=== PATIENT | female | born 1930 | race Caucasian/White ===

== ENCOUNTER 2019-09-08 13:12 | Inpatient (IN) ==
--- NOTE | 2019-09-08 13:26 | PROVIDER DOCUMENTATION ---
HPI-Respiratory General - General Stated Complaint: respitory distress Time Seen by Provider: 09/08/19 13:17 Source: patient Allergies/Adverse Reactions: Patient Allergies Allergy/AdvReac Type Severity Reaction Status Date / Time No Known Allergies Allergy Verified 09/08/19 13:46 Home Medications: Home Medication List Medication Instructions Recorded Confirmed Last Taken Type NK [No Home Medications] 09/08/19 09/08/19 Unknown History - History of Present Illness-Resp Nature of Presenting Problem: 88 YOF WITH PMH OF HTN, AFIB PRESENTS WITH C/O WHEEZING, SOB, COUGH THIS AM. SHE REPORTS SHE FELT LIKE SHE WAS CHOKING "DEEP DOWN" SHE WAS NOT EATING AT THE TIME. HE DAUGHTER CALLED EMS WHO REPORTS INSP/EXT WHEEZING ON THEIR ARRIVAL AND WAS GIVEN A NIRANJAN-NEB WITH GOOD RESPONSE. PT REPORTS SHE IS "FEELING FINE NOW". SHE DENIES FEVER, CHILLS, ABDOMINAL PAIN, N/V/D, CHEST PAIN Quality of Pain: reports: none Severity in ED: reports: mild Onset/Duration: reports: just prior to arrival Timing: reports: improving, gone now Context: denies: recent chemotherapy, recent URI, out of meds, asp iration/choking Exposure: reports: unknown cause Cough Quality/Degree: reports: moderate Episode Frequency: occasional episodes Current Respiratory Medication Therapy: Initiated none Modifying Factors: improves with: nothing (WAS AT REST-SITTING IN HER CHAIR BUT LYING BACK) Associated Symptoms: reports: cough, shortness of breath, wheezing Similar Symptoms Previously?: No Recently seen or treated by another doctor?: No Review of Systems - Adult - REVIEW OF SYSTEMS - ADULT Constitutional: reports: no symptoms reported. denies: see HPI, chills, fever, fatique, night sweats, weight gain, weight loss, other Eyes: reports: no symptoms reported. denies: see HPI, discharge, dry eyes, decreased vision, blurred vision, double vision, eye pain, redness, other Ears, Nose, Mouth & Throat: reports: no symptoms reported. denies: see HPI, ear discharge, ear pain, hearing loss, tinnitus, epistaxis, sinus problem, nose pain, loose teeth, mouth/dental pain, mouth swelling, hoarseness, throat pain, throat swelling, other Cardiovascular: reports: no symptoms reported. denies: see HPI, chest pain, edema, heart murmur, irregular heart rate, orthopnea, palpitations, poor circulation, PND, syncope, other Respiratory: reports: see HPI, cough, shortness of breath, wheezing. denies: no symptoms reported, chronic cough, dyspnea on exertion, excessive sputum production, hemoptysis, pleurisy, other Gastrointestinal: reports: no symptoms reported. denies: see HPI, abdominal pain, hematemesis, constipation, diarrhea, difficulty swallowing, frequent heartburn, nausea, poor appetite, rectal bleeding, vomiting, other Genitourinary: reports: no symptoms reported. denies: see HPI, dysuria, discharge, frequency, flank pain, frequent UTI's, hematuria, hesitency, incontinence, urinary retention, urgency, other Musculoskeletal: reports: no symptoms reported. denies: see HPI, bone pain, back pain, frequent leg cramps, joint pain, joint swelling, muscle aches, muscle weakness, neck pain, other Integumentary: reports: no symptoms reported Neurological: reports: no symptoms reported. denies: see HPI, ataxia, dizziness/vertigo, headache/migraines, loss of balance, numbness, paresthesia, seizure, slurred speech, syncope, tremors, other Psychiatric: reports: no symptoms reported. denies: see HPI, anxiety, anti- depressant use, alcohol/drug dependence, depression, emotional problems, insomnia, panic attacks, suicidal thoughts, other Endocrine: reports: no symptoms reported. denies: see HPI, change in skin pigment, excessive sweating, goiter, cold intolerance, heat intolerance, increased hunger, increased thirst, polyuria, other Hematologic/Lymphatic: reports: no symptoms reported. denies: see HPI, blood clots, easy bruising, low blood count, lymphedema, prolonged bleeding, swollen lymph nodes, transfusions, other Allergic/Immunologic: reports: no symptoms reported. denies: see HPI, allergic reactions, allergic rhinitis, asthma, eczema, food allergy, frequent infections, hay fever, hives, positive PPD, urticaria, other Past History - Adult - PAST MEDICAL HISTORY-ADULT Review of Records: reports: Nursing Assessment Review, Medications Reviewed, Social history reviewed & non-contributory. Cardiovascular: reports: A-Fib, HTN - IMMUNIZATION STATUS Childhood Immunizations: See Nurse Assessment Flu Vaccine: See Nurse Assessment Physical Exam-General - PHYSICAL EXAM-ADULT Initial Vital Signs Reviewed: Yes (EMS VS REVIEWED NONE IN ER AVAILABLE AT THIS TIME ) - CONSTITUTIONAL General Appearance: alert, no apparent distress - EYES Eyes: PERRL/EOMI, pink conjunctivae - HEAD, EARS, NOSE, MOUTH & THROAT HENMT: normocephalic/atraumatic, moist mucous membranes, normal ENT inspection - NECK Neck: non-tender, full range of motion, supple - RESPIRATORY Respiratory: chest non-tender, lungs clear, normal breath sounds, no pleuratic chest pain, no respiratory distress, no accessory muscle use - CARDIOVASCULAR Cardiovascular: normal peripheral pulses, regular rate, rhythm, no edema, no gallop, no JVD, no murmur - GASTROINTESTINAL (ABDOMEN) Abdominal Exam: normal bowel sounds, non tender, soft, no organomegaly - LYMPHATIC Lymphatic: no adenopathy - MUSCULOSKELETAL Back Exam: normal inspection, no CVA tenderness, no vertebral tenderness Extremity: normal range of motion, non-tender, normal gait Peripheral Pulses: radial (R): 2+, radial (L): 2+ - SKIN Integumentary: normal color, normal turgor, warm/dry - NEUROLOGIC Neurologic: grossly normal - PSYCHIATRIC Psych/Mental Status: normal mood/affect, oriented x 3 - HEART Score HEART Score: History: Slightly Suspicious HEART Score: ECG: Normal HEART Score: Age: > or = 65 Years HEART Score: Risk Factors for Atherosclerotic Disease: 1 or 2 Risk Factors HEART Score: Troponin: < or = Normal Limit Total HEART Score:: 3 Progress - PLAN OF CARE/RESULTS Progress/Plan/Lab Results: Vital Signs - 8 hr 09/08/19 13:37 Temperature 98.3 F Pulse Rate 161 H Respiratory Rate 21 Blood Pressure 121/93 O2 Sat by Pulse Oximetry 97 Laboratory Results - last 24 hr 09/08/19 09/08/19 09/08/19 13:42 13:42 13:42 WBC 4.51 L RBC 4.65 Hgb 14.0 Hct 43.8 MCV 94.2 MCH 30.1 MCHC 32.0 L RDW Std Deviation 13.9 Plt Count 141 MPV 11.9 H Immature Gran % (Auto) 0.0 Neut % (Auto) 47.9 Lymph % (Auto) 44.1 [place] % (Auto) 7.1 Eos % (Auto) 0.7 Baso % (Auto) 0.2 Immature Gran # (Auto) 0.00 Neut # (Auto) 2.16 Lymph # (Auto) 1.99 [place] # (Auto) 0.32 Eos # (Auto) 0.03 Baso # (Auto) 0.01 PT 14.5 INR 1.11 PTT (Actin FS) 31.6 Sodium 146 H Potassium 4.0 Chloride 102 Carbon Dioxide 28 Anion Gap 16 BUN 11 Creatinine 0.9 Estimated GFR/1.73 m2 59 BUN/Creatinine Ratio 12 Glucose 103 Calculated Osmolality 290 Calcium 9.3 Total Bilirubin 0.65 AST 27 ALT 11 Alkaline Phosphatase 96 Troponin T Total Protein 6.8 Albumin 4.6 Globulin 2.2 Albumin/Globulin Ratio 2.1 09/08/19 13:42 WBC RBC Hgb Hct MCV MCH MCHC RDW Std Deviation Plt Count MPV Immature Gran % (Auto) Neut % (Auto) Lymph % (Auto) [place] % (Auto) Eos % (Auto) Baso % (Auto) Immature Gran # (Auto) Neut # (Auto) Lymph # (Auto) [place] # (Auto) Eos # (Auto) Baso # (Auto) PT INR PTT (Actin FS) Sodium Potassium Chloride Carbon Dioxide Anion Gap BUN Creatinine Estimated GFR/1.73 m2 BUN/Creatinine Ratio Glucose Calculated Osmolality Calcium Total Bilirubin AST ALT Alkaline Phosphatase Troponin T < 0.010 Total Protein Albumin Globulin Albumin/Globulin Ratio Orders Category Date Time Status Saline Loc NOW Care 09/08/19 13:20 Active cxr [CHEST-PORTABLE] [RAD] Stat Exams 09/08/19 13:52 Completed CBC WITH ELECTRONIC DIFF [HEME] Stat Lab 09/08/19 13:42 Completed COMPREHENSIVE METABOLIC PANEL [CHEM] Stat Lab 09/08/19 13:42 Completed PRO B-NATRIURETIC PEPTIDE Stat Lab 09/08/19 13:42 Received PROTIME WITH INR [COAG] Stat Lab 09/08/19 13:42 Completed PTT [COAG] Stat Lab 09/08/19 13:42 Completed TROPONIN T Stat Lab 09/08/19 13:42 Completed Diltiazem 100 mg/Ns [Cardizem 100 mg/Ns] Med 09/08/19 14:00 Active 100 mg in 100 ml IV As Directed mls/hr Diltiazem [Cardizem] Med 09/08/19 13:50 Discontinued 10 mg IV NOW ONE EKG [EKG] Stat Ther 09/08/19 13:20 Draft PT IN AFIB WITH RVR RATE 149, CARDIZEM GTT ORDERED, DISCUSSED WITH PATIENT/NURSE. Result Diagrams: 09/08/19 13:42 09/08/19 13:42 - EKG 1 Time of EKG reading by physician:: 13:45 EKG Read and Signed by:: Del Snow EKG Interpretation (*Must complete 3 of following elements*): Abnormal Rate: 149 Rhythm: A-FIB WITH RVR [place]: normal ST Wave: non-specific ST changes Prior EKG Comparison: changes noted (NOW WITH NONSPECIFIC ST CHANGES) - XRAY 1 XRAY Study: Chest Impression: See EMR Report (EXAM: CHEST-PORTABLE 09/08/2019 HISTORY: WHEEZING, SOB TECHNIQUE: AP upright portable at 1406 COMMENT: There is apparent COPD. The heart size is at the upper limits of normal. Compared to 01/13/2016 there has been no significant change in the appearance of the chest. IMPRESSION: Stable chest. Electronically signed by Torrey Garcia 09/08/2019 2:14 PM 09/08/19 1414 Interpreting Physician: Torrey Garcia MD Dictated Date/Time: 09/08/19 1413 cc: [place] [facility]; None,PCP) - CONSULTS/PCP/HOSPITALIST Notification #1 *Consult/PCP/Hospitalist*: AMADOU ALONSO Time Discussed: 14:25 Consult Disposition: Admit Departure - Departure Date of Disposition Decision: 09/08/19 Time of Disposition Decision: 14:25 DIAGNOSIS: Atrial fibrillation with rapid ventricular response Disposition: ADMITTED INPATIENT 09 Certified Medical Emergency: Emergent Condition: Stable Referrals and Follow-Ups: None,PCP [Primary Care Provider] - - Critical Care Note This patient required my direct & personal management of CC.: No Attestation - Physician/ PIYUSH Attestation Patient care was provided by Advanced Practice Provider:: Yes Advanced Practice Provider:: [facility] Advanced Practice Provider documentation review:: The Mid-level provider documentation, treatment plan and medical decision making was reviewed by the ph ysician who agrees with all treatment and medical decision making by the MLP. The physician spent face to face time with patient:: No Advanced Practice Provider documentation review:: Supervising physician onsite and consulted in the evaluation and care of this patient. The physician did not have a face to face encounter with the patient.
[2019-09-08] MEDS ORDERED: CARDIZEM IV ONE (13:50)
--- NOTE | 2019-09-08 13:52 | EKG Report ---
Test Performed on : 09/08/2019 1:45:42 PM Test Reason : SOB Blood Pressure : / mmHG Vent. Rate : 149 BPM Atrial Rate : 077 BPM P-R Int : 000 ms QRS Dur : 066 ms QT Int : 284 ms P-R-T Axes : 000 061 258 degrees QTc Int : 447 ms Atrial fibrillation. with rapid ventricular response. Nonspecific ST and T wave abnormality Abnormal ECG When compared with ECG of 13-JAN-2016 13:02, ST now depressed in Lateral leads Nonspecific T wave abnormality now evident in Inferior leads Nonspecific T wave abnormality, worse in Anterolateral leads Unconfirmed Result
[2019-09-08 13:56] LABS: BASO# 0.01 X1000 (0.0-0.2); BASO% 0.2 % (0.0-0.8); EOS# 0.03 X1000 (0.0-0.7); EOS% 0.7 % (0.0-10.0); HEMATOCRIT 43.8 % (37.0-47.0); LYMPH# 1.99 X1000 (1.2-3.4); LYMPH% 44.1 % (20.5-51.1); MCH 30.1 PG (27-31); MCV 94.2 FL (81-99); MONO# 0.32 X1000 (0.11-0.59); MONO% 7.1 % (1.7-9.3); MPV 11.9 FL (7.4-10.4); NEUT# 2.16 X1000 (1.4-6.5); NEUT% 47.9 % (42.2-75.2); PLT 141 X1000 (130-400); RBC 4.65 XMIL (4.2-5.4); RDW 13.9 % (11.5-14.5); WBC 4.51 X1000 (4.8-10.8)
[2019-09-08] MEDS: CARDIZEM 100 MG/NS 100 MG/100 ML IVPB IV SCH ×2 (13:56→22:57)
[2019-09-08 14:02] LABS: INR 1.11; PROTIME 14.5 Seconds (11.0-16.0)
[2019-09-08 14:03] LABS: PTT 31.6 Seconds (22.3-41.8)
--- NOTE | 2019-09-08 14:16 | Diag Imaging Result Doc PS360 ---
EXAM: CHEST-PORTABLE 09/08/2019 HISTORY: WHEEZING, SOB TECHNIQUE: AP upright portable at 1406 COMMENT: There is apparent COPD. The heart size is at the upper limits of normal. Compared to 01/13/2016 there has been no significant change in the appearance of the chest. IMPRESSION: Stable chest. Electronically signed by Torrey Garcia 09/08/2019 2:14 PM
[2019-09-08 14:17] LABS: ALB/GLOB RATIO 2.1; ALBUMIN 4.6 g/dL (3.5-5.0); CALCIUM 9.3 mg/dL (8.8-10.2); CREATININE 0.9 mg/dL (0.5-0.9); TOTAL BILIRUBIN 0.65 mg/dL (0.20-1.00); TOTAL PROTEIN 6.8 g/dL (6.3-8.3)
[2019-09-08] MEDS ORDERED: TYLENOL PO PRN (15:00)
[2019-09-08] MEDS ORDERED: NS 1,000 ML IV SCH (15:00)
[2019-09-08] MEDS ORDERED: ZOFRAN IV PRN (15:00)
[2019-09-08] MEDS ORDERED: ELIQUIS PO ONE (15:04)
--- NOTE | 2019-09-08 19:52 | HISTORY AND PHYSICAL ---
ADDENDUM: I have seen and examined Ms. Patel in the emergency room today. Ms. Patel is an 88- year-old, elderly female who presented to the emergency room today because of feeling anxiety and having shortness of breath. She said she did hit her finger, and then since then she was having the symptoms. The daughter told her to come in and get it checked out. Upon presentation, she was found out to be in atrial fibrillation with RVR, with initial pulse rate of about 161 to 168. Her EKG did show atrial fibrillation with rapid ventricular response. She was started on Cardizem drip. At the time of my encounter with her, her heart rate was a lot better. She was asymptomatic, but she was still in atrial fibrillation. PHYSICAL EXAMINATION: GENERAL: Her physical exam reveals an elderly, 88-year-old female. She looks slightly malnourished with a BMI of 17.6. Her mucosa was slightly pale and very dry. Anicteric and acyanotic. NECK: Supple. There was no JVD. CHEST: Clear. CARDIOVASCULAR: Irregularly irregular. I did not hear any murmurs. ABDOMEN: Soft. EXTREMITIES: No pedal edema. CANDY MAKER HELPER: Patient was awake, alert, and oriented. LABS: I have reviewed her labs. Sodium is 146, otherwise unremarkable. Her chest x-ray shows apparent COPD, but no changes. ASSESSMENT: 1. Atrial fibrillation with rapid ventricular response, apparently of new onset. The patient is currently on Cardizem drip. She is currently rate controlled, but still atrial fibrillation. Cardiology will be consulted. Echocardiogram has been ordered. 2. Clinical volume depletion. Will continue with fluid resuscitation. Please refer to the details of the History and Physical by the EQUIPMENT MONITOR PHOTOTYPESETTING in the chart. cc: Cam Ibrahim MD
[2019-09-08] MEDS: ELIQUIS PO SCH (21:22)
[2019-09-09] MEDS ORDERED: SOLU-MEDROL IV ONE (03:02)
[2019-09-09] MEDS ORDERED: DUONEB (A & A) INH ONE (03:03)
[2019-09-09] MEDS: DUONEB (A & A) INH SCH ×4 (03:16→21:08)
[2019-09-09 03:41] LABS: ALLEN TEST YES; BE 0.5 mmoll (-3.0-3.0); BLOOD TYPE ARTERIAL; HCO3-(ACT) 25.3 mmoll (20.0-26.0); METHB 0.5 % (0.0-1.5); O2(CT) 18.1 mL/dL (15.0-23.0); O2HB 97.6 % (95.0-99.0); PCO2(98.6) 41 mmHg (35-45); PO2(98.6) 137 mmHg (60-100); SAMPLE BLOOD; SAO2 100.2 % (95.0-100.0)
[2019-09-09 03:43] LABS: MODALITY CANNULA
[2019-09-09 06:06] LABS: BASO# 0.01 X1000 (0.0-0.2); BASO% 0.3 % (0.0-0.8); EOS# 0.01 X1000 (0.0-0.7); EOS% 0.3 % (0.0-10.0); HEMATOCRIT 39.4 % (37.0-47.0); HEMOGLOBIN 12.8 g/dL (12.0-16.0); LYMPH# 0.41 X1000 (1.2-3.4); LYMPH% 12.7 % (20.5-51.1); MCH 30.4 PG (27-31); MCHC 32.5 g/dL (33-37); MCV 93.6 FL (81-99); MONO# 0.12 X1000 (0.11-0.59); MONO% 3.7 % (1.7-9.3); MPV 12.2 FL (7.4-10.4); NEUT# 2.69 X1000 (1.4-6.5); PLT 124 X1000 (130-400); RBC 4.21 XMIL (4.2-5.4); RDW 13.7 % (11.5-14.5); WBC 3.24 X1000 (4.8-10.8)
[2019-09-09] MEDS: NS 1,000 ML IV SCH (06:23)
[2019-09-09 06:29] LABS: AGAP 12; BUN 10 mg/dL (8-22); CHLORIDE 104 mmol/L (98-107); COSMO 279; CREATININE 0.6 mg/dL (0.5-0.9); ESTIMATED GFR > 60; GLUCOSE 106 mg/dL (70-104); POTASSIUM 3.7 mmol/L (3.5-5.1); SODIUM 140 mmol/L (136-145); TCO2 24 mmol/L (25-35)
[2019-09-09] MEDS: CARDIZEM PO SCH ×4 (09:10→20:48)
[2019-09-09] MEDS: ELIQUIS PO SCH ×2 (09:10→20:48)
--- NOTE | 2019-09-09 10:56 | PROGRESS NOTE ---
DATE: 09/09/2019 SUBJECTIVE: Ms. Patel has underlying atrial fibrillation, currently on Cardizem drip. She does report that she feels better. She came in with respiratory distress, an 88-year-old, history of atrial fibrillation, hypertension, presents to the emergency room complaining of wheezing, shortness of breath, and cough. States she felt like she was choking, although she was not eating at the time. EMS reported that the patient had inspiratory and expiratory wheezes on arrival. She did have good response to DuoNeb. She stated that she was feeling fine. When she got to the emergency room, she was found to be in atrial fibrillation with rapid ventricular rate at a rate of 160. Today, she says she is feeling better. She was sleeping. She was easy to arouse. OBJECTIVE: Vital Signs: Temp 97.5 degrees, pulse 74, respirations 17, blood pressure 97/55. HEENT: Pupils are equal. Lungs: Clear in all lung montoya. Cardiovascular: Regular rhythm and rate without murmur or S3. Abdomen: Soft. Skin: Warm and dry. ASSESSMENT AND PLAN: 1. Atrial fibrillation with rapid ventricular response. Ventricular rate seems to be controlled. Will review her monitor. It is possible that she is back in sinus rhythm. 2. Hypertension. Blood pressure is well controlled. REVIEW OF LABORATORY DATA: White count 3240, hematocrit 39, platelet count 124,000. Sodium 140, potassium 3.7, chloride 104, BUN 10, creatinine 0.6. Will check electrolytes and check a magnesium and will check B12 and folate on her as well. cc: Maicol Ramon MD
--- NOTE | 2019-09-09 15:30 | CONSULTATION ---
DATE OF CONSULTATION: 09/09/2019 IMPRESSION: 1. Atrial fibrillation with rapid ventricular rate. The patient has had persistent atrial fibrillation of recent onset. 2. Wheezing and shortness of breath. Consider possible underlying diastolic heart failure versus bronchospasm related to recently initiated beta-clementina. 3. Hypertensive cardiovascular disease. RECOMMENDATIONS: 1. Continue anticoagulation with Eliquis. 2. Control heart rate with Cardizem. We will initiate Cardizem CD and continue to utilize short- acting Cardizem to allowing intravenous Cardizem to be titrated off. 3. For now, we will try manage without use of beta-clementina, metoprolol. 4. Follow up echocardiography. HISTORY: This 88-year-old, white female with past history of persistent atrial fibrillation and hypertension was admitted through the emergency room after she presented with shortness of breath and wheezing. She was found to have atrial fibrillation with rapid ventricular rate. There has been no chest pain nor lightheadedness. She was started on intravenous Cardizem and admitted for further care. She had recently seen Dr. Eriberto Gotti because of her persistent atrial fibrillation, and was started on metoprolol and Eliquis last week. She has no history of coronary artery disease nor angina. PAST MEDICAL HISTORY: 1. Persistent atrial fibrillation. 2. Hypertension. PAST SURGICAL HISTORY: Includes appendectomy and hysterectomy. ALLERGIES: She has no known drug allergies. MEDICATIONS PRIOR TO ADMISSION: As listed. SOCIAL HISTORY: She has never smoked and does not use alcohol. FAMILY HISTORY: Negative for premature coronary disease. REVIEW OF SYSTEMS: Pulmonary: Noteworthy for wheezing and cough. Gastrointestinal: Noncontributory. Constitutional: Noncontributory. Remainder of review of systems negative/noncontributory with 14 total systems reviewed. PHYSICAL EXAMINATION: General: This is a pleasant, elderly, white female in no distress on room air. Vital Signs: Blood pressure 108/63, heart rate 73 and regular, oxygen saturation 97% on room air. HEENT Examination: Extraocular movements appear to be intact. Mucous membranes are moist. Neck: Supple without jugular venous distention. There are no carotid bruits. Chest: Clear to auscultation bilaterally. Cardiac Examination: Reveals a irregular rate and rhythm without appreciable murmur or gallop. Abdomen: Soft. Bowel sounds are normal. Extremities: Without edema. Neurologic Examination: Reveals her to be alert and fully oriented. Speech is fluent. She moves all 4 extremities equally well. Skin: Warm and dry. Psychiatric Examination: Reveals her mood to be appropriate. DIAGNOSTIC DATA: A 12 lead EKG demonstrates atrial fibrillation with rapid ventricular rate and nonspecific ST and T-wave abnormality. LABORATORY DATA: Includes a white blood cell count of 3.24, hematocrit 39.4, hemoglobin 12.8, platelet count 124,000. Sodium 140, potassium 3.7, chloride 104, carbon dioxide 24, BUN 10, creatinine 0.6, glucose 106. cc: Lit Car MD
[2019-09-09] MEDS: CARDIZEM CD PO SCH (19:52)
--- NOTE | 2019-09-09 20:56 | ECHO REPORT ---
ORDER DATE: 09/08/2019 MEASUREMENTS: 1. Septal thickness 0.5. 2. Left ventricular internal diameter in diastole 4.7. 3. Posterior wall thickness 0.5. 4. Aortic root 2.8. SUMMARY: 1. Fair quality study. 2. Aortic valve is trileaflet and opens normally on 2-dimensional images. The peak gradient across the aortic valve is less than 10 mmHg. There is very mild aortic regurgitation. Mitral, tricuspid, and pulmonic valves are without evidence of structural abnormality with [id number] mitral regurgitation, moderate tricuspid regurgitation, and mild pulmonic insufficiency. Estimated systolic PA pressure by Doppler is 70 mmHg, suggesting moderate-to- severe pulmonary hypertension. Aortic root is normal in size. 3. Normal left ventricular dimensions demonstrated. Estimated left ventricular ejection fraction is approximately 35 to 40 percent. No focal wall motion abnormality can be appreciated. Moderate biatrial enlargement is demonstrated. Right ventricle is borderline enlarged with reduced right ventricular systolic function. 4. No pericardial effusion. 5. Appearance of inferior vena cava suggests normal central venous pressure. cc: MD Sadie Vizcarra CRNP
[2019-09-09] MEDS ORDERED: CARDIZEM PO SCH (22:00)
[2019-09-10] MEDS: NS 1,000 ML IV SCH (02:18)
[2019-09-10] MEDS: CARDIZEM PO SCH ×2 (02:19→08:47)
[2019-09-10] MEDS: DUONEB (A & A) INH SCH ×2 (03:52→12:09)
[2019-09-10 06:14] LABS: AGAP 18; BUN 15 mg/dL (8-22); CALCIUM 9.3 mg/dL (8.8-10.2); CHLORIDE 102 mmol/L (98-107); COSMO 281; CREATININE 0.8 mg/dL (0.5-0.9); ESTIMATED GFR > 60; GLUCOSE 142 mg/dL (70-104); MAGNESIUM 1.6 mg/dL (1.5-2.7); POTASSIUM 3.7 mmol/L (3.5-5.1); SODIUM 139 mmol/L (136-145); TCO2 19 mmol/L (25-35)
--- NOTE | 2019-09-10 07:18 | Diag Imaging Result Doc PS360 ---
EXAM: CHEST-PORTABLE HISTORY: sob TECHNIQUE: Single view COMPARISON: 09/08/2019 FINDINGS: The lungs are hyperexpanded. Heart is mildly prominent. No pulmonary edema. No pleural effusions identified. No consolidation. IMPRESSION: Emphysema with mild cardiomegaly Electronically signed by Jason Parker 09/10/2019 7:15 AM
[2019-09-10] MEDS: CARDIZEM CD PO SCH (08:47)
[2019-09-10] MEDS: ELIQUIS PO SCH (08:47)
[2019-09-10 10:45] LABS: URINE SOURCE CLEAN CATCH
[2019-09-10 10:55] LABS: BILIRUBIN URINE NEGATIVE (NEGATIVE); BLOOD URINE NEGATIVE (NEGATIVE); COLOR YELLOW; GLUCOSE URINE NEGATIVE (NEGATIVE); KETONE URINE NEGATIVE (NEGATIVE); LEUKOCYTES URINE NEGATIVE (NEGATIVE); NITRITE URINE NEGATIVE (NEGATIVE); PROTEIN URINE NEGATIVE (NEGATIVE); SP GRAVITY URINE 1.008; TURBIDITY URINE CLEAR (CLEAR); UR EPITHELIAL CELLS <10 /HPF (<10); URINE BACTERIA NEGATIVE /HPF; URINE RBC <10 /HPF (<10); URINE WBC <10 /HPF (<10); UROBILINOGEN URINE NORMAL (NORMAL)
[2019-09-10 12:50] VITALS: BP 105/74
--- NOTE | 2019-09-10 18:12 | DISCHARGE SUMMARY ---
ADMISSION DATE: 09/08/2019 DISCHARGE DATE: 09/10/2019 DISPOSITION: Home. FOLLOWUP: 1. Dr. Car. 2. Dr. Pettit. CONSULTATIONS DURING THIS ADMISSION: Cardiology was consulted. The patient was seen by Dr. Car. INVASIVE PROCEDURES DONE DURING THIS ADMISSION: None. IMAGING STUDIES OF SIGNIFICANCE: 1. A chest x-ray did show stable COPD changes. 2. Echocardiogram showed a PA pressure by Doppler of 70, suggesting moderate to severe pulmonary hypertension, and an ejection fraction of 25% to 40%. No focal wall motion abnormality. Right ventricle is borderline enlarged with reduced right ventricle systolic function. 3. A repeat chest x-ray did show emphysema with mild cardiomegaly. DIAGNOSES AT THE TIME OF DISCHARGE: 1. Atrial fibrillation with rapid ventricular response on presentation, improved. 2. History of paroxysmal atrial fibrillation. 3. Clinical volume depletion. 4. Undiagnosed COPD. DISCHARGE MEDICATIONS: 1. Aspirin 81 mg p.o. daily. 2. Apixaban 2.5 b.i.d. 3. Cardizem 120 p.o. daily. 4. DuoNeb treatments as needed. PRESENTING COMPLAINT: Difficulty breathing. HISTORY/HOSPITAL COURSE: Ms. Patel is an 88-year-old female with a history of paroxysmal atrial fibrillation. She came to the emergency department because of difficulty breathing. Upon presentation, she was found to have been feeling a sensation of choking. She was nebulized, and she got better; however, she was found to be in atrial fibrillation/rapid ventricular response, so she was admitted for medical care. Ms. Patel was admitted to [facility] and was started on was started on a Cardizem drip, which eventually controlled the heart rate. Cardiology was consulted. The patient was seen by Dr. Barreto. Throughout the hospital course Ms. Patel felt a lot better. She did have an episode whereby she got also short of breath and bronchospastic. She was given nebulization and steroids, and that seems to have resolved. Two chest x-rays have revealed that she has COPD changes; however Ms. Patel has never had any smoking in her life, and she has never been told about this finding before. We have asked her to follow up with Dr. Pettit for outpatient PFTs and evaluation. This morning Ms. Patel refers to be doing a lot better. Vitals: Blood pressure is 105/74, pulse 74, respirations 16, temperature 97.3. She is in stable condition for discharge. All the discharge instructions were discussed with her. She voiced understanding. Her daughter was at the bedside at the time of the encounter. We also went over medications and side effects. She did express affordability issues with the Eliquis, but the daughter did say they have samples at home from her cigarette packer, and that they should be okay for the time being. Ms. Ptael is being discharged in stable condition. TIME SPENT: The time spent for discharge is 33 minutes. cc: MD Moe Moffett MD William D. Denney, MD
--- NOTE | 2019-10-18 13:59 | HISTORY AND PHYSICAL ---
CHIEF COMPLAINT: Respiratory distress. HISTORY OF PRESENT ILLNESS: This is an 88-year-old female with a history of atrial fibrillation, hypertension, who presented to the emergency room complaining of wheezing, shortness of breath with a cough. She stated she felt like she was choking, although she was not eating at that time. EMS reported that the patient had inspiratory and expiratory wheezes on their arrival. She did have a good response to [facility]. By arrival to the emergency room, she stated that she was feeling fine. All symptoms had subsided. She was found to be in atrial fibrillation with RVR in the 160s, for which she received Cardizem bolus and was placed on a Cardizem drip. Eliquis was started for anticoagulation, and she was admitted to ICU for further evaluation and treatment. PAST MEDICAL HISTORY: Atrial fibrillation and hypertension. PAST SURGICAL HISTORY: Appendectomy, hysterectomy. SOCIAL HISTORY: She denies alcohol, tobacco, or illicit drug use. ALLERGIES: No known drug allergies. HOME MEDICATIONS: A list will be obtained by the nursing staff. Once verified, we will review and restart as appropriate. REVIEW OF SYSTEMS: Discussed with patient with pertinent positives stated in the HPI. She denied any syncope or dizziness, any chest pain, any productive cough, fever, chills, night sweats, any nausea, vomiting, diarrhea, constipation, black or bloody vomitus or stools, any hematuria, dysuria, frequency, urgency. PHYSICAL EXAMINATION: GENERAL: This is an 88-year-old female who is sitting up on the bed in no distress. VITAL SIGNS: Blood pressure is 100/69 with a heart rate of 80, respirations are 16, temperature is 98.6 degrees oral with room air saturations 95% to 97%. HEENT: Head is normocephalic, atraumatic. Mucous membranes are moist. NECK: Supple with trachea midline. CARDIOVASCULAR: Irregular irregular rate and rhythm, tachycardic. S1 and S2 are appreciated. EXTREMITIES: She has no lower extremity edema. Calves are nontender with peripheral pulses palpable x4 extremities. PULMONARY: Breath sounds are clear with no increased work of breathing noted. Chest rises and falls symmetric respiration. Chest wall is nontender to palpation. GASTROINTESTINAL: Abdomen is soft, nontender, nondistended with bowel sounds in all 4 quadrants. NEUROLOGIC: She is alert and oriented x3. SKIN: Warm and dry. DIAGNOSTIC DATA: Labs, WBC is 4.5 with hemoglobin 14, hematocrit 43.8, platelets 141,000. Sodium 146, potassium 4, BUN 11, creatinine 0.9 with a glucose of 103. Chest x-ray revealed COPD with heart size at the upper limits of normal. EKG reveals atrial fibrillation at a rate of 149. ASSESSMENT AND PLAN: 1. Atrial fibrillation with rapid ventricular response. 2. Hypertension. PLAN: The patient will be admitted to step-down unit. We will continue her Cardizem drip per protocol. We will continue Eliquis 2.5 b.i.d. We will consult Dr. Car with cardiology. We will check a CBC and a BMP in the morning. We will order echocardiogram. Check a stat TSH. The patient was evaluated and plan was discussed with Dr. Ibrahim. Further treatments pending hospital course. Dictated by AMADOU Bermudez for Cam Ibrahim MD cc: AMADOU Bermudez MD
== END 2019-09-10 14:03 | disposition home health service (06) | DRG 310 ==
LOC: SUPCPDRO → ED 13:12 → 2N 15:21 → SUATTDRO 15:21
PROVIDERS: ATTEND Internal Medicine